=== PATIENT | female | born 1990 | race Caucasian/White ===

== ENCOUNTER 2025-07-03 11:11 | Emergency (ER) | payer OTHER, SELFPAY ==
[2025-07-03] VITALS (9 sets, daily range): BP systolic 119–148; BP diastolic 57–81; PULSE 47–103; RESP 14–24; TEMP 36.6; O2SAT 96–99; BMI 24.4
--- NOTE | 2025-07-03 11:25 | DI.RAD.S_ITS ---
PROCEDURE: XR ANKLE LT MIN 3V INDICATIONS: pain after fall TECHNIQUE: 3 views of the ankle were acquired. COMPARISON: None. FINDINGS: Bones: No fractures or dislocations. Ankle mortise is normally aligned. No suspicious bony lesions. Soft tissues: No tibiotalar joint effusion. Achilles tendon appears normal. IMPRESSION: No acute osseous abnormality. If pain persists with conservative management, consider repeat x-ray in 10-14 days or cross-sectional imaging. Dictated by: Celestino Rebolledo M.D. on 07/03/2025 at 11:47 Approved by: Celestino Rebolledo M.D. on 07/03/2025 at 11:47
--- NOTE | 2025-07-03 11:26 | EKG_ITS ---
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
--- NOTE | 2025-07-03 11:53 | PC.NURSE ---
11:50 This RN orients patient to room. Patient states she has had sharp, chest pain and dizziness today lasting about 5 minutes prior to arriving at the hospital. Currently denies chest pain. wedger made aware and patient moved to main ED room 7.
--- NOTE | 2025-07-03 11:54 | DI.RAD.S_ITS ---
PROCEDURE: XR CHEST 1V INDICATIONS: chest pain TECHNIQUE: One view of the chest was acquired. COMPARISON: [facility], , XR CHEST 1 VIEW, 01/28/2023, 19:13. FINDINGS: Surgical changes and devices: None. Lungs and pleura: Lungs are clear. No pleural effusions or pneumothorax. Mediastinum: Mediastinal contours appear normal. Heart size is normal. Bones and chest wall: No suspicious bony lesions. Overlying soft tissues appear unremarkable. IMPRESSION: No acute cardiopulmonary abnormality is seen. Dictated by: Celestino Rebolledo M.D. on 07/03/2025 at 12:13 Approved by: Celestino Rebolledo M.D. on 07/03/2025 at 12:13
[2025-07-03 12:24] LABS: Add Manual Diff / Slide Review NO; Hematocrit 36.2 % (36-46); Hemoglobin 12.5 g/dL (12.0-16.0); Lymphocytes Absolute Auto 1400 /uL (1100-4500); Mean Corpuscular HGB Conc 34.4 % (30-36); Mean Corpuscular Hemoglobin 28.4 PG (26-34); Mean Corpuscular Volume 82.4 fL (80-100); Platelet Count 149 X10^3/uL (150-400)
[2025-07-03 12:36] LABS: Alanine Aminotransferase 14 IU/L (<35); Albumin 4.9 g/dL (3.5-5.0); Albumin Globulin Ratio 1.7 (1.0-2.8); Alkaline Phosphatase 56 U/L (38-126); Blood Urea Nitrogen 10 mg/dL (7-17); Calcium 9.2 mg/dL (8.4-10.2); Carbon Dioxide 25 mmol/L (22-32); Chloride 106 mmol/L (98-107); Estimated Glomerular Filt Rate > 60 mL/min (>60); Globulin 2.9 g/dL (1.7-4.1); Glucose 105 mg/dL (70-99); HEMOLYSIS 17 (0-50); Lipase 104 U/L (23-300); Potassium 4.1 mmol/L (3.4-5.1); Sodium 138 mmol/L (137-145); Total Protein 7.8 g/dL (6.3-8.2)
--- NOTE | 2025-07-03 12:38 | ED.LOWEXIN ---
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 Patient notes she rolled her ankle on Thursday, has been able to ambulate but it is uncomfortable. States it is mostly in the ankle region. Has a little bit of bruising of the dorsum of her foot. Patient states no new numbness tingling or weakness. Has been persistent uncomfortable so she came for evaluation. She notes she has has a little bit of substernal chest pain as well she describes it as centralized without radiation, no shortness of breath. She had some nausea but no vomiting, no syncope, no diaphoresis no issues with bowel movements or urination. No new swelling of her extremities. Patient notes she had which describes as a cardiac arrest while delivering her baby but states she had a chest x-ray sounds like she had an echo and an outpatient Holter. Does not sound like she had CPR, was not intubated there was discussion about stress testing but ultimately was decided by Cardiology that she did not require it. Did not have a extensive hospitalization after her delivery. They noted she was having a tachy-julieta type syndrome at that time was on what sounds like a beta neena for a brief period of time but was having too much bradycardia and it was stopped. She is not on any daily medication she was recently started on metronidazole for bacterial vaginosis after a well-woman exam. Patient states she has had ex lap x2 for endometriosis. Reports allergy or adverse reaction to amitriptyline. Denies tobacco, alcohol or recreational drugs. She does follow up with primary care she does not persistently follow up with Cardiology and was released from their care. She has has a Holter monitor and reports that she was told she might have a septal infarct on prior echo but states it got better as well. Related Data Allergies Allergy/AdvReac Type Severity Reaction Status Date / Time No Known Drug Allergies Allergy Verified 07/03/25 11:25 Review of Systems Review of Systems ROS Unobtainable: All systems reviewed & are unremarkable except as noted in HPI and below Patient History Social History Smoking Status: Never smoker Smoking Status: Never smoker Exam Narrative Exam Narrative: GENERAL: Alert and oriented x three, female in mild distress HEENT: Head normocephalic, atraumatic, EOMI, pupils reactive, face symmetric, moist mucous membranes NECK: Supple, full range of motion CARDIOVASCULAR: Regular rate and rhythm without murmurs, rubs or gallops. No JVD. No edema bilateral lower extremities. RESPIRATORY: Breath sounds equal bilaterally, no wheezes rales or rhonchi. ABDOMEN: Soft, nontender. Normoactive bowel sounds all 4 quadrants. No guarding or rebound, rigidity, no mass : No CVA tenderness EXTREMITIES: Normal range of motion, no clubbing or edema. Neurovascularly intact. Patient has some mild tenderness over the lateral malleolus. She has some greenish ecchymosis on the dorsum of the foot. No swelling. No warmth. No bony tenderness over the metatarsals, calcaneus or toes. She has full range of motion. 2+ dorsalis pedis bilaterally. Normal sensation throughout. NEUROLOGICAL: Cranial nerves II through XII grossly intact. Moving all extremities SKIN: Warm, dry, no petechiae, no rashes or lesions. Initial Vital Signs Initial Vital Signs: Vital Signs Temperature 97.8 F 07/03/25 11:16 Pulse Rate 87 07/03/25 11:16 Respiratory Rate 18 07/03/25 11:16 Blood Pressure 148/80 H 07/03/25 11:16 Pulse Oximetry 96 07/03/25 11:16 Oxygen Delivery Method Room Air 07/03/25 11:16 Course Orders Ordered: ED Orders 07/03/25 11:25 XR ankle LT min 3V Stat 07/03/25 11:26 EKG-12 Lead Stat 07/03/25 11:30 Trop I [Troponin I] Stat 07/03/25 11:54 XR chest 1V Stat 07/03/25 12:08 Complete Blood Count AUTO DIFF Stat Comprehensive Metabolic Panel Stat Lipase Stat NT-proBNP (BNP-Adult 18+) Stat 07/03/25 13:30 EKG-12 Lead Stat 07/03/25 13:41 Trop I [Troponin I] Stat Discontinued Medications Ketorolac Tromethamine (Ketorolac 30 Mg/Ml Vial) 15 mg IV NOW ONE Stop: 07/03/25 13:33 Last Admin: 07/03/25 13:41 Dose: 15 mg Documented By: CK Vital Signs Vital signs: Vital Signs - 8 hr 07/03/25 11:16 07/03/25 11:54 07/03/25 11:55 Temperature 97.8 F Pulse Rate 87 64 Respiratory Rate 18 Blood Pressure 148/80 H Pulse Oximetry 96 98 97 Oxygen Delivery Method Room Air 07/03/25 11:55 07/03/25 12:11 07/03/25 12:31 Temperature Pulse Rate 68 103 H Respiratory Rate Blood Pressure 139/68 Pulse Oximetry 97 Oxygen Delivery Method 07/03/25 12:33 07/03/25 12:33 07/03/25 13:00 Temperature Pulse Rate 56 L 48 L Respiratory Rate 16 14 20 Blood Pressure 148/68 H Pulse Oximetry 99 97 Oxygen Delivery Method 07/03/25 13:01 07/03/25 13:01 07/03/25 13:30 Temperature Pulse Rate 47 L Respiratory Rate 20 Blood Pressure 119/57 L 121/81 Pulse Oximetry 97 Oxygen Delivery Method 07/03/25 13:30 Temperature Pulse Rate 47 L Respiratory Rate 24 Blood Pressure Pulse Oximetry 98 Oxygen Delivery Method MDM - Extremity Injury (Lower) Lab Data 07/03/25 12:08 07/03/25 12:08 Labs: Lab Results 07/03/25 07/03/25 07/03/25 Range/Units 11:30 12:08 13:41 WBC 5.9 (4.5-11.0) X10^3/uL RBC 4.40 (4.0-5.2) X10^6/uL Hgb 12.5 (12.0-16.0) g/dL Hct 36.2 (36-46) % MCV 82.4 (80-100) fL MCH 28.4 (26-34) PG MCHC 34.4 (30-36) % RDW 13.3 (11.6-14.8) % Plt Count 149 L (150-400) X10^3/uL Neut % (Auto) 67.6 (50-75) % Lymph % (Auto) 23.6 L (25-40) % [place] % (Auto) 6.1 (3-14) % Eos % (Auto) 2.3 (2-4) % Baso % (Auto) 0.4 (0-2) % Neut # (Auto) 4000 (1960-8099) /uL Lymph # (Auto) 1400 (5946-5091) /uL [place] # (Auto) 400 (0-900) /uL Eos # (Auto) 100 (0-450) /uL Baso # (Auto) 0 (0-100) /uL Sodium 138 (137-145) mmol/L Potassium 4.1 (3.4-5.1) mmol/L Chloride 106 (98-107) mmol/L Carbon Dioxide 25 (22-32) mmol/L BUN 10 (7-17) mg/dL Creatinine 0.70 (0.52-1.04) mg/dL Estimated GFR > 60 (>60) mL/min BUN/Creatinine Ratio 14.3 (6-22) Glucose 105 H (70-99) mg/dL Calcium 9.2 (8.4-10.2) mg/dL Total Bilirubin 0.5 (0.2-1.3) mg/dL AST 27 (14-36) IU/L ALT 14 (<35) IU/L Alkaline Phosphatase 56 (38-126) U/L Troponin I < 0.012 < 0.012 (0.01-0.034) ng/mL NT-Pro-B Natriuret Pep 103 (<125) pg/mL Total Protein 7.8 (6.3-8.2) g/dL Albumin 4.9 (3.5-5.0) g/dL Globulin 2.9 (1.7-4.1) g/dL Albumin/Globulin Ratio 1.7 (1.0-2.8) Lipase 104 (23-300) U/L Point of Care Testing Test Results Negative ECG Data Attestation: I personally reviewed and interpreted this ECG as follows: Prior ECG tracings: not available for review Interpretation: Sinus rhythm with sinus arrhythmia rate of 63 IN 130 QRS is 78 QTC of [address] elevation or depression. No priors for comparison. Sinus bradycardia rate of 46 IN 136 QRS of 98 QTC 376. No dynamic changes appreciated. MDM Narrative Medical decision making narrative: Labs show white count of 5.9 hemoglobin 12.5 platelets of 149 no priors for comparison chemistries are overall appropriate BUN and creatinine normal glucose is 105, LFTs are negative, troponin BNP 103. Point of care urine preg is negative Chest x-ray shows no acute change. Left ankle x-ray shows no acute osseous abnormality. EKG shows sinus rhythm with sinus arrhythmia rate of 63 IN 130 QRS is 78 QTC 397, no acute ST-elevation depression appreciated. No prior for comparison. 34-year-old female with left ankle pain after rolling her ankle ambulating. 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 She does follow regularly with primary care in his had Holter monitors in between large delivery in 2022. Show notes she was told she might have had a septal infarct on an echo but states it also got better. Discussed repeat trop at 2 hours. Patient is agreeable but has to orange picker her daughter from school she states she may leave before in his resulted we discussed this would be against medical advice she expresses understanding. She is very polite throughout conversation. She would like to proceed with of the lab but expresses she plans to leave prior to result. Discussed if elevated we will attempt to follow up with patient, she states she has a good phone number on file with us. Patient left against medical advice prior to her troponin repeat result. On follow up is negative Discharge Plan Departure Patient Disposition: Left Against Medical Advice Clinical Impression: Ankle sprain and strain, Chest pain Activity Restrictions/Additional Instructions: Follow up in 7-10 days for repeat imaging if you are having persistent ankle pain. Your x-ray imaging does not show any obvious breaks or fractures at this time. You may weightbear as tolerated. Follow up with your physician for further cardiac workup sounds like you have already started that process which I think is appropriate. You do have a troponin currently pending this is your cardiac enzyme that is not recommended that you leave before this is resulted. If it is elevated we will try to contact you to let you know that you should return to the emergency department. Please return if you have new or worsening symptoms, new swelling of your lower extremity, fevers, new or worsening chest pain or shortness of breath, persistent vomiting, passing out or other new or concerning changes. Stand Alone Forms: Patient Portal/API, Against Med. Advice (Mongolian)
[2025-07-03 12:45] LABS: NT-proBNP (BNP-Adult 18+) 103 pg/mL (<125)
[2025-07-03 13:05] LABS: Troponin I < 0.012 ng/mL (0.01-0.034)
--- NOTE | 2025-07-03 13:30 | EKG_ITS ---
[address] [address] Test Date: 2025-07-03 Pat Name: Ivania Perez Department: [facility] Room: Gender: Female Drafter (Cad) Electronic: JACQUELINE : 1990 Requested By: Order Number: [id number] Reading MD: Connor Martinez MD Measurements Intervals [place] Rate: 46 P: 50 CO: 136 QRS: 61 QRSD: 98 T: 64 QT: 430 QTc: 376 Interpretive Statements Sinus bradycardia Electronically Signed On 07-03-2025 13:40:42 PDT by Connor Martinez MD
[2025-07-03] MEDS: KETOROLAC 30 MG/ML VIAL 15 MG IV (13:41)
--- NOTE | 2025-07-03 14:08 | PC.NURSE ---
07/03/25 At 1330: pt reports to this nurse and that she has to leave to orange picker kids at 1400 and that no one else can drive to pick them up but her, even though she has spouse at bedside offering to pick them up for her so she could stay. pt reports she plans to leave AMA if not DC'd by 1400, MD aware, AMA form signed.
[2025-07-03 14:20] LABS: Troponin I < 0.012 ng/mL (0.01-0.034)
== END 2025-07-03 14:30 | disposition left against medical advice (07) ==
PROVIDERS: Emergency Provider Emergency Medicine
DX: S93.402A Sprain of unspecified ligament of left ankle, initial encounter (principal); S96.912A Strain of unspecified muscle and tendon at ankle and foot level, left foot, initial encounter; R07.9 Chest pain, unspecified; I49.5 Sick sinus syndrome; X50.1XXA Overexertion from prolonged static or awkward postures, initial encounter
CPT/HCPCS: 36415; 71045; 73610; 80053; 81025; 83690; 83880; 84484; 85025; 93005; 96374; 99284; J1885

== ENCOUNTER 2025-08-19 10:24 | Emergency (ER) | payer OTHER, SELFPAY ==
[2025-08-19 10:29] VITALS: BP 135/75; PULSE 77; RESP 14; TEMP 36.1; O2SAT 98; BMI 23.8
--- NOTE | 2025-08-19 10:35 | DI.CT.S_ITS ---
PROCEDURE: CT ABDOMEN PELVIS W CON
--- NOTE | 2025-08-19 10:35 | ED_ITS ---
HPI - Abdominal Pain
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
[2025-08-19] MEDS: LACTATED RINGERS 1,000 ML 1000 ML IV (10:42)
[2025-08-19] MEDS: ONDANSETRON 4 MG/2 ML INJ IV (10:43)
[2025-08-19] MEDS: KETOROLAC 30 MG/ML VIAL 15 MG IV (10:43)
[2025-08-19 10:48] LABS: Appearance Urine UA SL CLOUDY; Bilirubin Urine UA NEGATIVE (NEGATIVE); Color Urine UA RED; Glucose Urine UA NEGATIVE (Negative); Ketones Urine UA NEGATIVE (NEGATIVE); Leukocyte Esterase Urine UA 1+ (NEGATIVE); Nitrite Urine UA POSITIVE (Negative); Occult Blood Urine UA 3+ (Negative); Protein Urine UA 3+ (Negative); Specific Gravity Urine UA <=1.005 (1.000-1.035); Urobilinogen Urine UA 1.0 E.U./dL (0.2)
[2025-08-19 10:49] LABS: pH Urine UA 6.5 (4.5-8.0)
[2025-08-19 10:51] LABS: Culture Indicated Urine Specimen Cultured
[2025-08-19 10:53] LABS: Add Manual Diff / Slide Review NO; Hematocrit 36.7 % (36-46); Hemoglobin 12.3 g/dL (12.0-16.0); Lymphocytes Absolute Auto 1300 /uL (1100-4500); Mean Corpuscular HGB Conc 33.5 % (30-36); Mean Corpuscular Hemoglobin 27.8 PG (26-34); Mean Corpuscular Volume 83.0 fL (80-100); Platelet Count 171 X10^3/uL (150-400)
[2025-08-19 11:03] LABS: Alanine Aminotransferase 17 IU/L (<35); Albumin 5.1 g/dL (3.5-5.0); Albumin Globulin Ratio 1.6 (1.0-2.8); Alkaline Phosphatase 63 U/L (38-126); Blood Urea Nitrogen 9 mg/dL (7-17); Calcium 9.0 mg/dL (8.4-10.2); Carbon Dioxide 22 mmol/L (22-32); Chloride 107 mmol/L (98-107); Estimated Glomerular Filt Rate > 60 mL/min (>60); Globulin 3.1 g/dL (1.7-4.1); Glucose 95 mg/dL (70-99); HEMOLYSIS < 15 (0-50); Lipase 112 U/L (23-300); Potassium 4.4 mmol/L (3.4-5.1); Sodium 140 mmol/L (137-145); Total Protein 8.2 g/dL (6.3-8.2)
[2025-08-19 11:15] LABS: Troponin I < 0.012 ng/mL (0.01-0.034)
[2025-08-19 12:30] VITALS: BP 126/85
[2025-08-19 12:36] VITALS: PULSE 53; O2SAT 98
[2025-08-19 13:07] VITALS: BP 124/62; PULSE 61; RESP 16; TEMP 36.6; O2SAT 98
== END 2025-08-19 13:07 | disposition home or self-care (01) ==
PROVIDERS: Emergency Provider Family Medicine
DX: N39.0 Urinary tract infection, site not specified (principal); R07.9 Chest pain, unspecified
CPT/HCPCS: 36415; 74177; 80053; 81001; 81025; 83690; 84484; 85025; 87086; 93005; 96361; 96365; 96375; 99284; J0696; J1171; J1885; J2405; J7050; J7120; Q9967

== ENCOUNTER 2025-08-22 13:07 | Emergency (ER) | payer OTHER, SELFPAY ==
[2025-08-22 13:25] VITALS: BP 124/70; PULSE 73; RESP 16; TEMP 37.1; O2SAT 100; BMI 24.5
[2025-08-22 14:11] LABS: Appearance Urine UA CLEAR; Bilirubin Urine UA NEGATIVE (NEGATIVE); Glucose Urine UA TRACE g/dL (Negative); Ketones Urine UA NEGATIVE (NEGATIVE); Leukocyte Esterase Urine UA NEGATIVE (NEGATIVE); Occult Blood Urine UA NEGATIVE (Negative); Protein Urine UA NEGATIVE (Negative); Specific Gravity Urine UA <=1.005 (1.000-1.035); Urobilinogen Urine UA 1.0 E.U./dL (0.2)
[2025-08-22 14:21] LABS: pH Urine UA 7.0 (4.5-8.0)
[2025-08-22 14:22] LABS: Color Urine UA Dark Yellow; Culture Indicated Urine Cult Not Indicated
[2025-08-22 16:22] VITALS: BP 132/63; PULSE 54; RESP 18; O2SAT 95
--- NOTE | 2025-08-29 19:58 | ED_ITS ---
HPI - Recheck/Abnormal Lab/Rx <Emily Liu PA-C - Last Filed: 08/29/25 20:04> General Chief Complaint: Recheck/Abnormal Lab/Rx Stated Complaint: Chest pain, UTI meds making her worse 3 days Time Seen by Provider: 08/22/25 13:10 Source: patient Mode of arrival: Ambulatory History of Present Illness HPI narrative: 34-year-old female presents to the ED with bilateral back pain for 1 day. Patient was diagnosed with a UTI, is on antibiotics for it. She awoke this morning with bilateral back pain and had an episode of vomiting. She has been taking Pyridium for the pain. He also had an episode of vomiting 2 days ago. Related Data Previous Rx's ?Medication ?Instructions ?Recorded phenazopyridine 200 mg tablet 200 mg PO TID PRN pain # 6 tabs 08/19/25 (Pyridium) doxycycline hyclate 100 mg capsule 100 mg PO BID 14 da ys #28 caps 08/24/25 fluconazole 150 mg tablet 150 mg PO DAILY 1 dose #1 ta b 08/24/25 hydrocodone 5 mg-acetaminophen 325 1 tab PO Q4-6H PRN pain #10 tabs 08/24/25 mg tablet ondansetron 4 mg disintegrating 4 mg PO Q8H PRN nausea and 08/24/25 tablet vomiting #14 tabs promethazine 12.5 mg tablet 12.5 mg PO TID PRN nausea and 08/24/25 vomiting #12 tabs Allergies Allergy/AdvReac Type Severity Reaction Status Date / Time amitriptyline Allergy Mild Verified 08/24/25 09:09 Review of Systems <Emily Liu PA-C - Last Filed: 08/29/25 20:04> Constitutional Constitutional: Denies chills, Denies fatigue, Denies fever(s), Denies frequent falls, Denies lethargy and Denies weakness Eyes Eyes: Denies change in vision, Denies eye discharge, Denies irritation and Denies loss of vision ENT Ears, Nose, Mouth, and Throat: Denies change in voice, Denies dizziness, Denies neck pain, Denies sore throat and Denies throat swelling Cardiovascular Cardiovascular: Denies chest pain, Denies irregular heart rhythm, Denies lightheadedness, Denies palpitations, Denies dyspnea, Denies dyspnea on exertion and Denies orthopnea Respiratory Respiratory: Denies cough, Denies dyspnea, Denies dyspnea on exertion and Denies wheezing Gastrointestinal Gastrointestinal: Denies abdominal pain, Denies change in bowel habits, Denies d iarrhea, Reports nausea and Reports vomiting Musculoskeletal Musculoskeletal: Reports back pain, Denies neck pain and Denies numbness Integumentary/Breasts Skin/Breast: Denies pruritus, Denies erythema, Denies rash and Denies wounds Neurologic Neurologic: Denies behavioral changes, Denies confusion, Denies dizziness, Denies frequent falls, Denies loss of vision, Denies numbness and Denies weakness Psychiatric Psychiatric: Denies anxiety, Denies behavioral changes, Denies confusion, Denies depression, Denies homicidal ideation and Denies suicidal ideation Endocrine Endocrine: Denies fatigue, Denies flushing and Denies palpitations Hematologic/Lymphatic Hematologic/Lymphatic: Denies easy bruising Allergic/Immunologic Allergic/Immunologic: Denies urticaria, Denies throat swelling and Denies wheezing Patient History <Emily Liu PA-C - Last Filed: 08/29/25 20:04> Social History Smoking Status: Unknown if ever smoked Exam <Emily Liu PA-C - Last Filed: 08/29/25 20:04> Narrative Exam Narrative: Const General:?cooperative, healthy appearing and comfortable [facility] Head:?normal to inspection Ears:?hearing grossly normal bilaterally Nose:?external nose normal Face and sinus:?normal facial exam and sinuses nontender Mouth:?oral mucosae normal Throat:?posterior oropharynx normal Eyes General:?appearance normal, both eyes and all related structures Neck Neck:?normal visual inspection and no lymphadenopathy noted Resp Effort & Inspection:?normal respiratory effort Auscultation:?clear to auscultation bilaterally Cardio Rate:?regular rate Rhythm:?regular rhythm GI Abdomen is soft, nondistended, non tender to palpation. Neuro General:?patient alert, patient awake and patient oriented x3 Initial Vital Signs Initial Vital Signs: Vital Signs Temperature 98.7 F 08/22/25 13:25 Pulse Rate 73 08/22/25 13:25 Respiratory Rate 16 08/22/25 13:25 Blood Pressure 124/70 08/22/25 13:25 Pulse Oximetry 100 08/22/25 13:25 Oxygen Delivery Method Room Air 08/22/25 13:25 <Prosper Gomez MD - Last Filed: 08/31/25 08:54> Initial Vital Signs Initial Vital Signs: Vital Signs Temperature 98.7 F 08/22/25 13:25 Pulse Rate 73 08/22/25 13:25 Respiratory Rate 16 08/22/25 13:25 Blood Pressure 124/70 08/22/25 13:25 Pulse Oximetry 100 08/22/25 13:25 Oxygen Delivery Method Room Air 08/22/25 13:25 MDM - Recheck/Abnormal Lab/Rx <Emily Liu PA-C - Last Filed: 08/29/25 20:04> Lab Data Labs: Lab Results 08/22/25 Range/Units 14:00 Urine Color Dark yellow Urine Appearance Clear Urine pH 7.0 (4.5-8.0) Ur Specific [place] <=1.005 (1.000-1.035) Urine Protein Negative (Negative) Urine Glucose (UA) Trace H (Negative) g/dL Urine Ketones Negative (NEGATIVE) Urine Occult Blood Negative (Negative) Urine Nitrate TNP Urine Bilirubin Negative (NEGATIVE) Urine Urobilinogen 1.0 (0.2) E.U./dL Ur Leukocyte Esterase Negative (NEGATIVE) Urine RBC None seen (0-5/HPF) Urine WBC 0-1/hpf (0-5/HPF) Ur Squamous Epith Cells 0-1 /hpf (0-5/HPF) Urine Bacteria None seen (None) Ur Culture Indicated? Cult not indicated Vol Urine Centrifuged 10ml (spun) Point of Care Testing Test Results Negative MDM Narrative Medical decision making narrative: 34-year-old female presents to the ED with bilateral back pain for 1 day. UA was obtained which was negative for UTI. Discussed findings with patient. Recommend follow-up with OBGYN for further evaluation. ED return precautions discussed with patient. Patient verbalized understanding. Medical records reviewed: Yes <Prosper Gomez MD - Last Filed: 08/31/25 08:54> Lab Data Labs: Lab Results 08/22/25 Range/Units 14:00 Urine Color Dark yellow Urine Appearance Clear Urine pH 7.0 (4.5-8.0) Ur Specific [place] <=1.005 (1.000-1.035) Urine Protein Negative (Negative) Urine Glucose (UA) Trace H (Negative) g/dL Urine Ketones Negative (NEGATIVE) Urine Occult Blood Negative (Negative) Urine Nitrate TNP Urine Bilirubin Negative (NEGATIVE) Urine Urobilinogen 1.0 (0.2) E.U./dL Ur Leukocyte Esterase Negative (NEGATIVE) Urine RBC None seen (0-5/HPF) Urine WBC 0-1/hpf (0-5/HPF) Ur Squamous Epith Cells 0-1 /hpf (0-5/HPF) Urine Bacteria None seen (None) Ur Culture Indicated? Cult not indicated Vol Urine Centrifuged 10ml (spun) Point of Care Testing Test Results Negative Discharge Plan Departure Patient Disposition: Home Clinical Impression: Bilateral lower abdominal cramping Instructions: DI for Abdominal Pain-Adult Activity Restrictions/Additional Instructions: You were re-evaluated in the emergency room for a urinary tract infection. Your urine does not show a urinary tract infection currently, and seems to have resolved appropriately with the antibiotics. Please follow-up with your PCP and OBGYN as soon as possible. Return to the ED if you have worsening symptoms. Prescriptions: No Action phenazopyridine [Pyridium] 200 mg tablet 200 mg PO TID PRN (Reason: pain) Qty: 6 0RF doxycycline hyclate 100 mg capsule 100 mg PO BID 14 Days Qty: 28 0RF hydrocodone-acetaminophen 5-325 mg tablet 1 tab PO Q4-6H PRN (Reason: pain) Qty: 10 0RF promethazine 12.5 mg tablet 12.5 mg PO TID PRN (Reason: nausea and vomiting) Qty: 12 0RF ondansetron 4 mg tablet,disintegrating 4 mg PO Q8H PRN (Reason: nausea and vomiting) Qty: 14 0RF fluconazole 150 mg tablet 150 mg PO DAILY Qty: 1 0RF Rx Instructions: administer after completion of antibiotics if symptoms of yeast infection Stand Alone Forms: Patient Portal/API ED Sign-out <Prosper Gomez MD - Last Filed: 08/31/25 08:54> Cosign ED Attending Cosignature Attestation: I was immediately available in the department for consultation. This documentation has been reviewed and I agree with assessment and plan. Supervised by Prosper Gomez MD
== END 2025-08-22 16:20 | disposition home or self-care (01) ==
PROVIDERS: Emergency Provider Student in an Organized Health Care Education/Training Program
DX: M54.9 Dorsalgia, unspecified (principal); R10.30 Lower abdominal pain, unspecified; R11.10 Vomiting, unspecified
CPT/HCPCS: 81001; 81025; 99282

== ENCOUNTER 2025-08-24 09:06 | Emergency (ER) | payer OTHER, SELFPAY ==
[2025-08-24 09:09] VITALS: BP 132/69; PULSE 53; RESP 14; TEMP 36.9; O2SAT 98; BMI 23.8
[2025-08-24 09:36] LABS: Appearance Urine UA CLEAR; Bilirubin Urine UA NEGATIVE (NEGATIVE); Color Urine UA YELLOW; Glucose Urine UA NEGATIVE (Negative); Ketones Urine UA NEGATIVE (NEGATIVE); Leukocyte Esterase Urine UA NEGATIVE (NEGATIVE); Nitrite Urine UA NEGATIVE (Negative); Occult Blood Urine UA NEGATIVE (Negative); Protein Urine UA NEGATIVE (Negative); Specific Gravity Urine UA 1.010 (1.000-1.035); Urobilinogen Urine UA 0.2 E.U./dL (0.2)
[2025-08-24 09:38] LABS: pH Urine UA 5.5 (4.5-8.0)
[2025-08-24 09:43] LABS: Culture Indicated Urine Cult Not Indicated
--- NOTE | 2025-08-24 10:28 | PC.NURSE ---
Pt feeling nauseated,brought zofran to pt as well as tylenol and ibuprofen. I instructed pt that once she wasn't feeling nauseated that she can take the pain reliever. Pt yelled at me stating I'm not going to take it I'll just throw it up. I once again told her that I wanted her to take it approx 30 minutes or once she no longer felt nauseated. Pt took the zofran ODT.
[2025-08-24] MEDS: ONDANSETRON 4 MG ODT PO (10:31)
[2025-08-24] MEDS: IBUPROFEN 400 MG TABLET PO (10:32)
[2025-08-24] MEDS: ACETAMINOPHEN 325 MG TABLET 650 MG PO (10:32)
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
[2025-08-24 11:03] LABS: Urine N gonorrhoeae NOT DETECTED
[2025-08-24 11:04] LABS: Urine Chlamydia NOT DETECTED
--- NOTE | 2025-08-24 11:13 | DI.US.S_ITS ---
PROCEDURE: US PELVIC COMPLETE INDICATIONS: pelvic pain; worse r side; hx endo, prolapse TECHNIQUE: Real-time scanning was performed of the pelvic organs, with image documentation. Additional endovaginal scanning was necessary due to incomplete visualization of the adnexal and endometrial structures by transabdominal scanning. COMPARISON: [facility], CT, CT ABDOMEN PELVIS W CON, 08/19/2025, 11:00. FINDINGS: Uterus: Uterus measures 6.8 x 4.1 x 3.7 cm. Anteverted uterine positioning. Endometrium measures 4 mm. No discrete fibroids identified by ultrasound. Cervical nabothian cysts are seen. Ovaries: Nonenlarged, measuring 7 mL on the right and 4 mL on the left. Color and spectral flows identified Other: No pathologic free abdominal or pelvic fluid. IMPRESSION: Nonenlarged ovaries, with color and spectral flows identified. No significant uterine abnormality. Dictated by: Tyrese Elizalde M.D. on 08/24/2025 at 13:55 Approved by: Tyrese Elizalde M.D. on 08/24/2025 at 13:56
[2025-08-24 11:45] LABS: Add Manual Diff / Slide Review NO; Hematocrit 38.3 % (36-46); Hemoglobin 12.9 g/dL (12.0-16.0); Lymphocytes Absolute Auto 1200 /uL (1100-4500); Mean Corpuscular HGB Conc 33.6 % (30-36); Mean Corpuscular Hemoglobin 27.8 PG (26-34); Mean Corpuscular Volume 82.5 fL (80-100); Platelet Count 139 X10^3/uL (150-400)
[2025-08-24] MEDS: KETOROLAC 30 MG/ML VIAL 15 MG IV (11:54)
[2025-08-24] MEDS: SODIUM CHLORIDE 0.9% 1,000 ML 1000 ML IV (11:54)
[2025-08-24 12:02] LABS: Alanine Aminotransferase 25 IU/L (<35); Albumin 5.2 g/dL (3.5-5.0); Albumin Globulin Ratio 1.6 (1.0-2.8); Alkaline Phosphatase 65 U/L (38-126); Blood Urea Nitrogen 11 mg/dL (7-17); Calcium 9.3 mg/dL (8.4-10.2); Carbon Dioxide 23 mmol/L (22-32); Chloride 107 mmol/L (98-107); Estimated Glomerular Filt Rate > 60 mL/min (>60); Globulin 3.3 g/dL (1.7-4.1); Glucose 96 mg/dL (70-99); HEMOLYSIS < 15 (0-50); Lipase 110 U/L (23-300); Potassium 4.3 mmol/L (3.4-5.1); Sodium 142 mmol/L (137-145); Total Protein 8.5 g/dL (6.3-8.2)
[2025-08-24] MEDS: ONDANSETRON 4 MG/2 ML INJ IV (12:09)
[2025-08-24] MEDS: MORPHINE 4 MG/ML INJ IV (12:57)
--- NOTE | 2025-08-24 14:18 | PC.NURSE ---
Chaperoned provider for pelvic exam. No swabs collected. Pt tolerated moderately, c/o pain at cervix.
== END 2025-08-24 15:56 | disposition home or self-care (01) ==
PROVIDERS: Emergency Medicine; Emergency Provider Physician Assistant
DX: N73.0 Acute parametritis and pelvic cellulitis (principal); N88.8 Other specified noninflammatory disorders of cervix uteri; R10.20 Pelvic and perineal pain unspecified side
CPT/HCPCS: 36415; 76830; 76856; 80053; 81001; 83690; 85025; 87070; 87086; 87205; 87210; 87491; 87563; 87591; 93975; 96361; 96374; 96375; 99284; J0696; J1885; J2272; J2405; J7030; J7050

== ENCOUNTER 2025-09-13 08:31 | Emergency (ER) | payer OTHER, SELFPAY ==
[2025-09-13] VITALS (8 sets, daily range): BP systolic 99–146; BP diastolic 46–73; PULSE 45–56; RESP 12; TEMP 36.3; O2SAT 96–100
--- NOTE | 2025-09-13 08:47 | DI.US.S_ITS ---
PROCEDURE: US PELVIC COMPLETE INDICATIONS: Pelvic pain, hx of PID TECHNIQUE: Real-time scanning was performed of the pelvic organs, with image documentation. Additional endovaginal scanning was necessary due to incomplete visualization of the adnexal and endometrial structures by transabdominal scanning. COMPARISON: [facility], US, US PELVIC COMPLETE, 08/24/2025, 12:50. FINDINGS: Uterus: Uterus is anteverted and normal in size at 7.6 x 4.4 x 5.9 cm. The myometrium is homogeneous. The endometrium measures 6.3 mm combined thickness. No fibroids. Ovaries: The right ovary measures 3.9 x 0.9 x 1.7 cm, with a calculated ovarian volume of 3.3 cc. The left ovary measures 1.8 x 1.4 x 1.1 cm, with a calculated ovarian volume of 1.4 cc. The ovaries have a normal sonographic appearance. Less than 12 follicles can be seen in each ovary. 1.6 cm maximum diameter right ovarian cyst. No adnexal masses are seen. There is intra-ovarian flow bilaterally by duplex. Other: No pathologic free abdominal or pelvic fluid. IMPRESSION: Unremarkable pelvic ultrasound. We strive to produce accurate, complete, and clear reports of imaging services. To assist us in improving patient care, this report was composed using standard report templates and voice recognition software. Therefore, it may contain abnormal punctuation, insertions and/or omissions. Occasional wrong-word or sound-alike substitutions may occur. Though we review the report and make efforts to correct it, we do recommend that the report be read carefully in proper context to recognize any text inaccuracies. Dictated by: Rodo Sumner M.D. on 09/13/2025 at 9:31 Approved by: Rodo Sumner M.D. on 09/13/2025 at 9:33
[2025-09-13] MEDS: SODIUM CHLORIDE 0.9% 1,000 ML 1000 ML IV (09:02)
[2025-09-13] MEDS: MORPHINE 4 MG/ML INJ 2 MG IV (09:03)
[2025-09-13 09:06] LABS: Add Manual Diff / Slide Review NO; Hematocrit 37.8 % (36-46); Hemoglobin 12.6 g/dL (12.0-16.0); Lymphocytes Absolute Auto 1100 /uL (1100-4500); Mean Corpuscular HGB Conc 33.4 % (30-36); Mean Corpuscular Hemoglobin 27.8 PG (26-34); Mean Corpuscular Volume 83.2 fL (80-100); Platelet Count 196 X10^3/uL (150-400)
[2025-09-13 09:17] LABS: Alanine Aminotransferase 16 IU/L (<35); Albumin 4.9 g/dL (3.5-5.0); Albumin Globulin Ratio 1.6 (1.0-2.8); Alkaline Phosphatase 52 U/L (38-126); Blood Urea Nitrogen 13 mg/dL (7-17); Calcium 9.1 mg/dL (8.4-10.2); Carbon Dioxide 21 mmol/L (22-32); Chloride 109 mmol/L (98-107); Estimated Glomerular Filt Rate > 60 mL/min (>60); Globulin 3.1 g/dL (1.7-4.1); Glucose 103 mg/dL (70-99); HEMOLYSIS < 15 (0-50); Potassium 3.9 mmol/L (3.4-5.1); Sodium 141 mmol/L (137-145); Total Protein 8.0 g/dL (6.3-8.2)
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
[2025-09-13 10:07] LABS: Appearance Urine UA CLEAR; Bilirubin Urine UA NEGATIVE (NEGATIVE); Color Urine UA YELLOW; Glucose Urine UA NEGATIVE (Negative); Ketones Urine UA TRACE (NEGATIVE); Leukocyte Esterase Urine UA NEGATIVE (NEGATIVE); Nitrite Urine UA NEGATIVE (Negative); Occult Blood Urine UA NEGATIVE (Negative); Protein Urine UA NEGATIVE (Negative); Specific Gravity Urine UA 1.010 (1.000-1.035); Urobilinogen Urine UA 0.2 E.U./dL (0.2)
[2025-09-13 10:09] LABS: pH Urine UA 5.5 (4.5-8.0)
[2025-09-13 10:11] LABS: Culture Indicated Urine Cult Not Indicated
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
== END 2025-09-13 11:27 | disposition home or self-care (01) ==
PROVIDERS: Emergency Provider Emergency Medicine; PCP Nurse Practitioner Family
DX: K52.9 Noninfective gastroenteritis and colitis, unspecified (principal); R10.9 Unspecified abdominal pain
CPT/HCPCS: 36415; 76856; 80053; 81001; 81003; 81025; 85025; 86850; 86900; 86901; 96361; 96374; 96375; 99284; J2060; J2272; J7030